=== PATIENT | female | born 1945 | race Caucasian/White ===

== ENCOUNTER 2022-04-24 21:27 | Inpatient (IN) | payer OTHER ==
[~2022-04-24] VITALS: Ht 170.2 cm; Wt 65.3 kg
[2022-04-24 23:42] LABS: HEMOGLOBIN 12.8 gm/dl (12.3-15.3); RED BLOOD COUNT 4.54 M/UL (4.00-5.10); WHITE BLOOD COUNT 14.1 K/UL (4.5-11.0)
[2022-04-25 00:01] LABS: BUN/CREATININE RATIO 24 (0-10)
[2022-04-25 05:33] LABS: HEMOGLOBIN 11.8 gm/dl (12.3-15.3); RED BLOOD COUNT 4.18 M/UL (4.00-5.10)
[2022-04-25 05:57] LABS: BUN/CREATININE RATIO 20 (0-10)
[2022-04-25] MEDS ORDERED: NOVOLOG 10100 UNITS/ INJ (12:31)
[2022-04-25] MEDS ORDERED: LANTUS SOL100 UNIT/1 SQ (12:31)
[2022-04-25] MEDS ORDERED: ATORVASTATIN CA10 MG PO (12:32)
[2022-04-25] MEDS ORDERED: LEVOTHYROXINE100 MCG PO (12:33)
[2022-04-25] MEDS ORDERED: CYANOCOBAL1000 MCG/1 INJ (12:34)
[2022-04-25] MEDS ORDERED: ASPIRIN EC81 MG PO (12:34)
[2022-04-25] MEDS ORDERED: MULTIVITAMIN1 EACH PO (12:34)
[2022-04-26 03:01] LABS: HEMOGLOBIN 11.6 gm/dl (12.3-15.3); RED BLOOD COUNT 4.11 M/UL (4.00-5.10); WHITE BLOOD COUNT 9.6 K/UL (4.5-11.0)
[2022-04-26 03:09] LABS: BUN/CREATININE RATIO 18 (0-10)
--- NOTE | 2022-04-26 12:39 | NUR ---
PATIENT ASSESSED THIS MORNING BILATERAL WHEEZING IN ALL LOBES INSPIRATORY. DR PLATT MADE AWARE. DR PLATT EVALUATED PATIENT THIS MORNING. PER DR PLATT GIVE 3 UNITS OF INSULIN LISPRO.
[2022-04-27 03:18] LABS: HEMOGLOBIN 11.1 gm/dl (12.3-15.3); RED BLOOD COUNT 3.93 M/UL (4.00-5.10)
[2022-04-27 04:16] LABS: BUN/CREATININE RATIO 25 (0-10)
[2022-04-28 04:54] LABS: HEMOGLOBIN 10.7 gm/dl (12.3-15.3); RED BLOOD COUNT 3.77 M/UL (4.00-5.10); WHITE BLOOD COUNT 11.4 K/UL (4.5-11.0)
[2022-04-28 05:01] LABS: BUN/CREATININE RATIO 18 (0-10)
--- NOTE | 2022-04-28 22:32 | NUR ---
MEDICATION WAS NOT GIVEN AT 2200 ON 04/28/22 BECAUSE THE EMAR SHOWS THAT IT WAS SCANNED AND GIVEN AT 0823 ON 04/28/22.
[2022-04-29] MEDS ORDERED: HYDROCODON-ACE1 EAC2 PO (08:47)
[2022-04-29] MEDS ORDERED: ELIQUIS 2.5 MG2.5 MG GT (08:47)
--- NOTE | 2022-04-29 09:43 | NUR ---
Patient and family would like [facility] to be the outpatient rehab service used.
[2022-04-29] MEDS ORDERED: MIRALAX17 GM PO (14:04)
[2022-04-29] MEDS ORDERED: DOXYCYCLINE HY100 M2 PO (14:04)
[2022-04-29] MEDS ORDERED: NICOTINE PATCH1 EAC1 TD (14:04)
[2022-04-29] MEDS ORDERED: MUPIROCIN22 GM TOP (14:04)
[2022-04-29] MEDS ORDERED: DOCUSATE SODIU100 MG PO (14:04)
[2022-04-29] MEDS ORDERED: IPRAT-ALBUT 0.5-3 ML NEB (14:04)
[2022-04-29] MEDS ORDERED: ELIQUIS2.5 MG PO (14:20)
[2022-04-29] MEDS ORDERED: PROTONIX40 MG PO (14:31)
--- NOTE | 2022-04-29 18:56 | NUR ---
Lantus insulin was documented as given on 04/28/22 at approximately 08:30. This dose was not given and the charting for the morning dose was in error. Pharmacy notified and patient was not charged for the dose.
== END 2022-04-29 15:19 | disposition home or self-care (01) | DRG 522 ==
LOC: ER1 21:27 → CDU 23:48 → M/S 04-25 14:04
PROVIDERS: Family Medicine; Internal Medicine; Orthopaedic Surgery; ADMIT Internal Medicine
PROC: 0SRR0JZ Replacement of Right Hip Joint, Femoral Surface with Synthetic Substitute, Open Approach (ICD-10-PCS; principal; 2022-04-26 13:15)
DX: S72.011A Unspecified intracapsular fracture of right femur, initial encounter for closed fracture (principal); E87.1 Hypo-osmolality and hyponatremia; E86.0 Dehydration; Z20.822 Contact with and (suspected) exposure to COVID-19; E03.9 Hypothyroidism, unspecified; E78.5 Hyperlipidemia, unspecified; I10 Essential (primary) hypertension; E11.51 Type 2 diabetes mellitus with diabetic peripheral angiopathy without gangrene; J44.9 Chronic obstructive pulmonary disease, unspecified; E78.00 Pure hypercholesterolemia, unspecified; W01.0XXA Fall on same level from slipping, tripping and stumbling without subsequent striking against object, initial encounter; E11.649 Type 2 diabetes mellitus with hypoglycemia without coma; F17.210 Nicotine dependence, cigarettes, uncomplicated; Z79.01 Long term (current) use of anticoagulants; Z79.82 Long term (current) use of aspirin; Y93.89 Activity, other specified; Y92.095 Swimming-pool of other non-institutional residence as the place of occurrence of the external cause; Z82.49 Family history of ischemic heart disease and other diseases of the circulatory system; Z98.890 Other specified postprocedural states; Z95.5 Presence of coronary angioplasty implant and graft
CPT/HCPCS: 36415; 71045; 73502; 73522; 73552; 76000; 80048; 80053; 82550; 82553; 82607; 82746; 82962; 83036; 83735; 84100; 84295; 84484; 84550; 85025; 85027; 85610; 86850; 86900; 86901; 93005; 94640; 94760; 97116; 97162; 97166; 97530; 99285; C1776; G0378; J0690; J1100; J2250; J2370; J2405; J2704; J2795; J3010; J7050